=== PATIENT | male | born 1980 | race African-American/Black ===

== ENCOUNTER 2017-10-22 16:34 | Emergency (ER) | payer OTHER ==
[~2017-10-22] VITALS: Ht 185.4 cm; Wt 87.3 kg
[2017-10-22 17:06] VITALS: BP 125/88; PULSE 101; RESP 18; TEMP 101.1; O2SAT 98
[2017-10-22] MEDS ORDERED: ACETAMINOPHEN 325 MG TAB PO ONE (17:15)
[2017-10-22 18:10] LABS: AUTOMATED NEUTROPHIL # 2.6 TH/MM3 (1.8-7.7); BASOPHIL % 0.6 % (0.0-2.0); EOSINOPHIL # 0.2 TH/MM3 (0-0.4); EOSINOPHIL % 3.9 % (0.0-4.0); HEMOGLOBIN 14.5 GM/DL (13.0-17.0); LYMPH % 18.4 % (9.0-44.0); LYMPHOCYTE # 0.8 TH/MM3 (1.0-4.8); MEAN CELL VOLUME 94.8 FL (80.0-100.0); MEAN CORPUSCULAR HGB CONC 33.8 % (32.0-36.0); MEAN PLATELET VOLUME 10.5 FL (7.0-11.0); MONO % 19.6 % (0.0-8.0); MONOCYTE # 0.9 TH/MM3 (0-0.9); NEUT % 57.5 % (16.0-70.0); PLATELET COUNT 140 TH/MM3 (150-450); RED BLOOD COUNT 4.54 MIL/MM3 (4.50-5.90); RED CELL DISTRIBUTION WIDTH 12.4 % (11.6-17.2); WHITE BLOOD COUNT 4.5 TH/MM3 (4.0-11.0)
[2017-10-22 18:12] LABS: BILIRUBIN, URINE NEG (NEG); BLOOD, URINE NEG (NEG); GLUCOSE,URINE NEG (NEG); KETONE, URINE NEG (NEG); NITRITE,URINE NEG (NEG); PH, URINE 6.5 (5.0-8.5); URINE COLOR YELLOW (YELLW/STRAW); URINE LEUKOCYTE ESTERASE NEG (NEG)
[2017-10-22 18:22] LABS: ALBUMIN 3.9 GM/DL (3.4-5.0); AST (GOT) 26 U/L (15-37); BLOOD UREA NITROGEN 12 MG/DL (7-18); CALCIUM 8.6 MG/DL (8.5-10.1); CHLORIDE 103 MEQ/L (98-107); CREATININE 1.17 MG/DL (0.60-1.30); GLOMERULAR FILTRATION RATE 71 ML/MIN (>89); GLUCOSE,RANDOM 82 MG/DL (74-106); SODIUM (NA) 139 MEQ/L (136-145)
[2017-10-22 18:25] LABS: ALKALINE PHOSPHATASE 42 U/L (45-117); ALT (GPT) 22 U/L (12-78); TOTAL PROTEIN 7.6 GM/DL (6.4-8.2)
[2017-10-22] MEDS ORDERED: IBUPROFEN 600 MG TAB PO ONE (22:00)
--- NOTE | 2017-10-22 22:04 | PD ---
HPI Chief Complaint: Abdominal Pain Time Seen by Provider: 21:45 Travel History International Travel<30 days: No Contact w/Intl Traveler<30days: No Traveled to known affect area: No History of Present Illness HPI The patient is a 37-year-old -[place] male who presents to the emergency department for 1 day of cough and cold symptoms. The patient states he developed symptoms yesterday morning including congestion, body aches, fever , headache, generalized fatigue. The patient went to see his primary physician earlier today, Dr. Petty, who referred him to the emergency department for possible influenza. The patient did not receive an influenza vaccination this year. The patient did take ibuprofen yesterday for his fever, however, did not take any medications prior to coming to the emergency department. He denies any chest pain, shortness of breath, cough, nausea, vomiting, diarrhea, or abdominal pain. He denies any recent international travel in the last 3 months. Symptoms are moderate. There are no current alleviating or exacerbating factors. PFSH Past Medical History Medical History: Denies Significant Hx Past Surgical History Surgical History: No Previous Surgery Social History Tobacco Use: No Allergies-Medications (Allergen,Severity, Reaction): Coded Allergies: No Known Allergies (Unverified , 10/22/17) Review of Systems Except as stated in HPI: all other systems reviewed are Neg General / Constitutional: Positive: Fever HENT: Positive: Headaches, Congestion, No: Sore Throat Cardiovascular: No: Chest Pain or Discomfort Respiratory: No: Cough, Shortness of Breath Gastrointestinal: No: Nausea, Vomiting, Diarrhea, Abdominal Pain Genitourinary: No: Dysuria Musculoskeletal: Positive: Myalgias Skin: No Rash Physical Exam Narrative GENERAL: Awake, alert, pleasant 37-year-old male who appears his stated age and is in no acute respiratory distress. SKIN: Focused skin assessment warm/dry. HEAD: Atraumatic. Normocephalic. EYES: Pupils equal and round. No scleral icterus. No injection or drainage. ENT: No nasal bleeding or discharge. Cobblestoning in the posterior oropharynx but no exudate. NECK: Trachea midline. No JVD. Shotty bilateral anterior cervical lymphadenopathy. CARDIOVASCULAR: Regular rate and rhythm. No murmur appreciated. Heart rate in the 80s. RESPIRATORY: No accessory muscle use. Clear to auscultation. Breath sounds equal bilaterally. GASTROINTESTINAL: Abdomen soft, non-tender, nondistended. No rebound tenderness. MUSCULOSKELETAL: No obvious deformities. No clubbing. No cyanosis. No edema. NEUROLOGICAL: Awake and alert. No obvious cranial nerve deficits. Motor grossly within normal limits. Normal speech. PSYCHIATRIC: Appropriate mood and affect; insight and judgment normal. Data Data Last Documented VS Vital Signs Date Time Temp Pulse Resp B/P (MAP) Pulse Ox O2 Delivery O2 Flow Rate FiO2 10/22/17 17:06 101.1 101 18 125/88 (100) 98 Orders Orders Complete Blood Count With Diff (10/22/17 17:09) Comprehensive Metabolic Panel (10/22/17 17:09) Lipase (10/22/17 17:09) Urinalysis - C+S If Indicated (10/22/17 17:09) Influenzae A/B Antigen (10/22/17 17:09) Acetaminophen (Tylenol) (10/22/17 17:15) Ibuprofen (Motrin) (10/22/17 22:00) Labs Laboratory Tests Test 10/22/17 17:42 10/22/17 17:49 Urine Color YELLOW Urine Turbidity CLEAR Urine pH 6.5 Urine Specific Norden 1.025 Urine Protein 300 mg/dL Urine Glucose (UA) NEG mg/dL Urine Ketones NEG mg/dL Urine Occult Blood NEG Urine Nitrite NEG Urine Bilirubin NEG Urine Urobilinogen 2.0 MG/DL Urine Leukocyte Esterase NEG Urine RBC 2 /hpf Urine WBC LESS THAN 1 /hpf Microscopic Urinalysis Comment CULT NOT INDICATED White Blood Count 4.5 TH/MM3 Red Blood Count 4.54 MIL/MM3 Hemoglobin 14.5 GM/DL Hematocrit 43.0 % Mean Corpuscular Volume 94.8 FL Mean Corpuscular Hemoglobin 32.0 PG Mean Corpuscular Hemoglobin Concent 33.8 % Red Cell Distribution Width 12.4 % Platelet Count 140 TH/MM3 Mean Platelet Volume 10.5 FL Neutrophils (%) (Auto) 57.5 % Lymphocytes (%) (Auto) 18.4 % Monocytes (%) (Auto) 19.6 % Eosinophils (%) (Auto) 3.9 % Basophils (%) (Auto) 0.6 % Neutrophils # (Auto) 2.6 TH/MM3 Lymphocytes # (Auto) 0.8 TH/MM3 Monocytes # (Auto) 0.9 TH/MM3 Eosinophils # (Auto) 0.2 TH/MM3 Basophils # (Auto) 0.0 TH/MM3 CBC Comment AUTO DIFF Differential Comment AUTO DIFF CONFIRMED Platelet Estimate NORMAL Platelet Morphology Comment ENLARGED Blood Urea Nitrogen 12 MG/DL Creatinine 1.17 MG/DL Random Glucose 82 MG/DL Total Protein 7.6 GM/DL Albumin 3.9 GM/DL Calcium Level 8.6 MG/DL Alkaline Phosphatase 42 U/L Aspartate Amino Transf (AST/SGOT) 26 U/L Alanine Aminotransferase (ALT/SGPT) 22 U/L Total Bilirubin 1.0 MG/DL Sodium Level 139 MEQ/L Potassium Level 3.9 MEQ/L Chloride Level 103 MEQ/L Carbon Dioxide Level 29.0 MEQ/L Anion Gap 7 MEQ/L Estimat Glomerular Filtration Rate 71 ML/MIN Lipase 214 U/L [facility] Medical Decision Making Medical Screen Exam Complete: Yes Emergency Medical Condition: Yes Medical Record Reviewed: Yes Interpretation(s) Date/Time Source Procedure Growth Status 10/22/17 17:42 Nasal Aspirate Influenza Types A,B Antigen (FELIPE) - Final Positive For Flu A Antigen Complete Laboratory Tests Test 10/22/17 17:42 10/22/17 17:49 Urine Color YELLOW Urine Turbidity CLEAR Urine pH 6.5 Urine Specific Norden 1.025 Urine Protein 300 mg/dL Urine Glucose (UA) NEG mg/dL Urine Ketones NEG mg/dL Urine Occult Blood NEG Urine Nitrite NEG Urine Bilirubin NEG Urine Urobilinogen 2.0 MG/DL Urine Leukocyte Esterase NEG Urine RBC 2 /hpf Urine WBC LESS THAN 1 /hpf Microscopic Urinalysis Comment CULT NOT INDICATED White Blood Count 4.5 TH/MM3 Red Blood Count 4.54 MIL/MM3 Hemoglobin 14.5 GM/DL Hematocrit 43.0 % Mean Corpuscular Volume 94.8 FL Mean Corpuscular Hemoglobin 32.0 PG Mean Corpuscular Hemoglobin Concent 33.8 % Red Cell Distribution Width 12.4 % Platelet Count 140 TH/MM3 Mean Platelet Volume 10.5 FL Neutrophils (%) (Auto) 57.5 % Lymphocytes (%) (Auto) 18.4 % Monocytes (%) (Auto) 19.6 % Eosinophils (%) (Auto) 3.9 % Basophils (%) (Auto) 0.6 % Neutrophils # (Auto) 2.6 TH/MM3 Lymphocytes # (Auto) 0.8 TH/MM3 Monocytes # (Auto) 0.9 TH/MM3 Eosinophils # (Auto) 0.2 TH/MM3 Basophils # (Auto) 0.0 TH/MM3 CBC Comment AUTO DIFF Differential Comment AUTO DIFF CONFIRMED Platelet Estimate NORMAL Platelet Morphology Comment ENLARGED Blood Urea Nitrogen 12 MG/DL Creatinine 1.17 MG/DL Random Glucose 82 MG/DL Total Protein 7.6 GM/DL Albumin 3.9 GM/DL Calcium Level 8.6 MG/DL Alkaline Phosphatase 42 U/L Aspartate Amino Transf (AST/SGOT) 26 U/L Alanine Aminotransferase (ALT/SGPT) 22 U/L Total Bilirubin 1.0 MG/DL Sodium Level 139 MEQ/L Potassium Level 3.9 MEQ/L Chloride Level 103 MEQ/L Carbon Dioxide Level 29.0 MEQ/L Anion Gap 7 MEQ/L Estimat Glomerular Filtration Rate 71 ML/MIN Lipase 214 U/L Differential Diagnosis Differential diagnosis includes influenza, viral syndrome, URI, bronchitis, pneumonia, febrile illness. Narrative Course Labs are drawn and sent in triage, are essentially unremarkable. However, influenza was positive for influenza A. I did discussion regarding possible treatment of influenza with Tamiflu, the patient understands the risk and benefits of treatment with Tamiflu, is agreeable. The patient was administered Tylenol in triage and ibuprofen by myself for fever. He is advised alternate Tylenol and Motrin for pain and fever, drink plenty fluids, Tamiflu as directed. He will be provided a copy of his labs and micro results at discharge. Return if symptoms worsen or progress. Diagnosis Primary Impression: Influenza A Patient Instructions: General Instructions Additional Instructions: Medications as directed. Alternate Tylenol and Motrin for pain and fever. Plenty of fluids to stay hydrated. Follow-up with your primary physician. Return if symptoms worsen or progress. Med/Other Pt SpecificInfo: Prescription(s) given Scripts Oseltamivir (Tamiflu) 75 Mg Cap 75 MG PO BID for Mgmt Viral Infection for 5 Days, #10 CAP 0 Refills Prov: Nhan Damon MD 10/22/17 Disposition: 01 DISCHARGE HOME Condition: Stable Nhan Damon MD Oct 22, 2017 22:04
[2017-10-22] MEDS ORDERED: OSEL75 PO (22:09)
== END 2017-10-22 22:22 | disposition home or self-care (01) ==
LOC: NEPD 16:34
DX: J10.1 Influenza due to other identified influenza virus with other respiratory manifestations (principal)
CPT/HCPCS: 80053; 81001; 83690; 85025; 87804; 99283

== ENCOUNTER 2017-10-27 17:31 | Emergency (ER) | payer OTHER ==
[~2017-10-27] VITALS: Ht 185.4 cm; Wt 87.0 kg
[~2017-10-27 17:31] MED LIST: OSEL75 PO
[2017-10-27 17:38] VITALS: BP 138/92; PULSE 80; RESP 18; TEMP 98; O2SAT 100
[2017-10-27] MEDS ORDERED: SODIUM CHLORIDE 0.9% FLUSH 10 ML FLUSH IVF PRN (18:15)
--- NOTE | 2017-10-27 18:24 | RADRPT ---
EXAM DATE/TIME: 10/27/2017 18:12 [facility] COMPARISON: No previous studies available for comparison. INDICATIONS : Short of breath. MEDICAL HISTORY : None. SURGICAL HISTORY : None. ENCOUNTER: Initial ACUITY: 1 day PAIN SCORE: 0/10 LOCATION: Bilateral chest FINDINGS: PA and lateral views of the chest demonstrate the lungs to be symmetrically aerated without evidence of mass, infiltrate or effusion. The cardiomediastinal contours are unremarkable. Osseous structure s are intact. CONCLUSION: No active disease. Rsos Ford MD on October 27, 2017 at 18:21 Board Certified Radiologist. This report was verified electronically.
[2017-10-27 18:50] LABS: AUTOMATED NEUTROPHIL # 2.3 TH/MM3 (1.8-7.7); BASOPHIL % 0.6 % (0.0-2.0); EOSINOPHIL # 0.1 TH/MM3 (0-0.4); EOSINOPHIL % 2.7 % (0.0-4.0); HEMATOCRIT 38.8 % (39.0-51.0); HEMOGLOBIN 13.5 GM/DL (13.0-17.0); LYMPH % 33.6 % (9.0-44.0); LYMPHOCYTE # 1.5 TH/MM3 (1.0-4.8); MEAN CELL VOLUME 91.8 FL (80.0-100.0); MEAN CORPUSCULAR HEMOGLOBIN 31.8 PG (27.0-34.0); MEAN CORPUSCULAR HGB CONC 34.7 % (32.0-36.0); MEAN PLATELET VOLUME 10.4 FL (7.0-11.0); MONO % 11.3 % (0.0-8.0); MONOCYTE # 0.5 TH/MM3 (0-0.9); NEUT % 51.8 % (16.0-70.0); PLATELET COUNT 158 TH/MM3 (150-450); RED BLOOD COUNT 4.23 MIL/MM3 (4.50-5.90); RED CELL DISTRIBUTION WIDTH 12.3 % (11.6-17.2); WHITE BLOOD COUNT 4.4 TH/MM3 (4.0-11.0)
[2017-10-27 19:04] LABS: ALBUMIN 3.6 GM/DL (3.4-5.0); ALT (GPT) 28 U/L (12-78); AST (GOT) 25 U/L (15-37); BICARBONATE 27.6 MEQ/L (21.0-32.0); BLOOD UREA NITROGEN 15 MG/DL (7-18); CALCIUM 8.7 MG/DL (8.5-10.1); CHLORIDE 106 MEQ/L (98-107); CREATININE 1.12 MG/DL (0.60-1.30); GLOMERULAR FILTRATION RATE 90 ML/MIN (>89); GLUCOSE,RANDOM 97 MG/DL (74-106); SODIUM (NA) 141 MEQ/L (136-145)
[2017-10-27 19:08] LABS: ALKALINE PHOSPHATASE 38 U/L (45-117); TOTAL BILIRUBIN ADULT 0.9 MG/DL (0.2-1.0); TOTAL PROTEIN 7.3 GM/DL (6.4-8.2); TROPONIN I LESS THAN 0.02 NG/ML (0.02-0.05)
[2017-10-27] MEDS ORDERED: NAPR500T2 PO (19:08)
--- NOTE | 2017-10-27 19:09 | PD ---
HPI Chief Complaint: Chest Pain Time Seen by Provider: 17:57 Travel History International Travel<30 days: No Contact w/Intl Traveler<30days: No Traveled to known affect area: No History of Present Illness HPI So well 37/min presents emerged from quitting of chest pain. He states chest pain started about 2-3 days ago. He had diagnosed influenza A about 5 or 6 days ago. He states pain is worse with certain arm movements and with deep breathing and coughing. Not worse with position or with eating. He states he has had chest pain benefits see before but it has been a while. No history of cardiac disease. No real shortness of breath. Symptoms been constant since onset. Not associated with exertion. History Past Medical History Medical History: Denies Significant Hx Past Surgical History Surgical History: No Previous Surgery Social History Alcohol Use: No Tobacco Use: No Allergies-Medications (Allergen,Severity, Reaction): Coded Allergies: No Known Allergies (Unverified , 10/22/17) Reported Meds & Prescriptions Reported Meds & Active Scripts Active Tamiflu (Oseltamivir Phosphate) 75 Mg Cap 75 Mg PO BID 5 Days Review of Systems Except as stated in HPI: all other systems reviewed are Neg Physical Exam Narrative GENERAL: Well-appearing 37-year-old man, no acute distress per SKIN: Focused skin assessment warm/dry. HEAD: Atraumatic. Normocephalic. EYES: Pupils equal and round. No scleral icterus. No injection or drainage. ENT: No nasal bleeding or discharge. Mucous membranes pink and moist. NECK: Trachea midline. No JVD. CARDIOVASCULAR: Regular rate and rhythm. No murmur appreciated. RESPIRATORY: No accessory muscle use. Clear to auscultation. Breath sounds equal bilaterally. GASTROINTESTINAL: Abdomen soft, non-tender, nondistended. Hepatic and splenic margins not palpable. MUSCULOSKELETAL: No obvious deformities. No clubbing. No cyanosis. No edema. NEUROLOGICAL: Awake and alert. No obvious cranial nerve deficits. Motor grossly within normal limits. Normal speech. PSYCHIATRIC: Appropriate mood and affect; insight and judgment normal. Data Data Last Documented VS Vital Signs Date Time Temp Pulse Resp B/P (MAP) Pulse Ox O2 Delivery O2 Flow Rate FiO2 10/27/17 17:38 98.0 80 18 138/92 (107) 100 Orders Orders Electrocardiogram (10/27/17 18:03) Complete Blood Count With Diff (10/27/17 18:03) Comprehensive Metabolic Panel (10/27/17 18:03) Troponin I (10/27/17 18:03) Iv Access Insert/Monitor (10/27/17 18:03) Sodium Chloride 0.9% Flush (Ns Flush) (10/27/17 18:15) Chest, Pa & Lat (10/27/17 18:03) Labs Laboratory Tests Test 10/27/17 18:25 White Blood Count 4.4 TH/MM3 Red Blood Count 4.23 MIL/MM3 Hemoglobin 13.5 GM/DL Hematocrit 38.8 % Mean Corpuscular Volume 91.8 FL Mean Corpuscular Hemoglobin 31.8 PG Mean Corpuscular Hemoglobin Concent 34.7 % Red Cell Distribution Width 12.3 % Platelet Count 158 TH/MM3 Mean Platelet Volume 10.4 FL Neutrophils (%) (Auto) 51.8 % Lymphocytes (%) (Auto) 33.6 % Monocytes (%) (Auto) 11.3 % Eosinophils (%) (Auto) 2.7 % Basophils (%) (Auto) 0.6 % Neutrophils # (Auto) 2.3 TH/MM3 Lymphocytes # (Auto) 1.5 TH/MM3 Monocytes # (Auto) 0.5 TH/MM3 Eosinophils # (Auto) 0.1 TH/MM3 Basophils # (Auto) 0.0 TH/MM3 CBC Comment DIFF FINAL Differential Comment Blood Urea Nitrogen 15 MG/DL Creatinine 1.12 MG/DL Random Glucose 97 MG/DL Albumin 3.6 GM/DL Calcium Level 8.7 MG/DL Aspartate Amino Transf (AST/SGOT) 25 U/L Alanine Aminotransferase (ALT/SGPT) 28 U/L Sodium Level 141 MEQ/L Potassium Level 3.9 MEQ/L Chloride Level 106 MEQ/L Carbon Dioxide Level 27.6 MEQ/L Anion Gap 7 MEQ/L Estimat Glomerular Filtration Rate 90 ML/MIN [facility] Medical Decision Making Medical Screen Exam Complete: Yes Emergency Medical Condition: Yes Interpretation(s) Review of EKG. LABS: CBC is unremarkable. CMP is unremarkable. EKG is normal. Differential Diagnosis Pleurisy, pericarditis, ACS, other Narrative Course Medical decision making This is a 37 woman who presents emerged department pleuritic right-sided chest pain following influenza is likely pleurisy. Looks well. No rub to suggest pericarditis. Recommend supportive treatment with NSAIDs. Diagnosis Primary Impression: Pleurisy Patient Instructions: General Instructions Additional Instructions: Use naproxen as needed for pain. Return to the emergency room for any worsening chest pain, trouble breathing, or any other new or worsening symptoms. Med/Other Pt SpecificInfo: Prescription(s) given Scripts Naproxen (Naproxen) 500 Mg Tab 500 MG PO BID, #20 TAB 0 Refills Prov: Jim García MD 10/27/17 Disposition: 01 DISCHARGE HOME Condition: Stable Jmi García MD Oct 27, 2017 19:09
--- NOTE | 2017-10-28 15:18 | EKG ---
Date Performed: 10/27/2017 Time Performed: 18:04:29 PTAGE: 37 years EKG: Sinus rhythm MINIMAL VOLTAGE CRITERIA FOR LVH, CONSIDER NORMAL VARIANT BORDERLINE ECG INTERPRETATION BASED ON A D EFAULT AGE OF 42 YEARS NO PREVIOUS TRACING DOCTOR: Zarina Austin Interpretating Date/Time 10/28/2017 15:12:30
== END 2017-10-27 20:02 | disposition home or self-care (01) ==
LOC: NEPE 17:31
DX: R09.1 Pleurisy (principal)
CPT/HCPCS: 71046; 80053; 84484; 85025; 93005; 99285